=== PATIENT | female | born 1935 | race Caucasian/White ===

== ENCOUNTER 2017-05-15 05:05 | Inpatient (IN) | payer MEDICARE ==
[~2017-05-15] VITALS: Ht 157.5 cm; Wt 64.9 kg
[2017-05-15 05:10] VITALS: BP 145/60
--- NOTE | 2017-05-15 05:20 | NUR ---
PT BIBA ALS. TAKEN TO OF. RT AT BEDSIDE
--- NOTE | 2017-05-15 05:30 | NUR ---
82Y/F PT. BIBA TO ED WITH C/O SOB,SAO2 80% , PUT ON CPAP, BREATHING TX WAS GIVEN ENREOUTE, ON SINUS TACHYCARDIA. AAO X 4, GCS 15, UNABLE TO AMBULATE AT THIS TIME. RESPIRATIONS ON CPAP, TACHYPNIA, BL LUNG CLEAR, O 2 SAT 99%. SKIN WARM AND DRY. NO C/O PAIN AT THIS TIME. VSS, ER MD MADE AWARE OF PT. STATUS.
--- NOTE | 2017-05-15 05:39 | NUR ---
PT MOVED TO BED 1
[2017-05-15] MEDS ORDERED: OSC500 PO (05:56)
[2017-05-15] MEDS ORDERED: AMLO10TA PO (05:56)
[2017-05-15] MEDS ORDERED: GABA100C PO (05:56)
[2017-05-15] MEDS ORDERED: OMEG-36 PO (05:56)
[2017-05-15] MEDS ORDERED: OMEP20TC12 PO (05:56)
[2017-05-15] MEDS ORDERED: ORE25 PO (05:56)
[2017-05-15] MEDS ORDERED: FLO110 IH (05:56)
[2017-05-15] MEDS ORDERED: LIP80 PO (05:56)
[2017-05-15] MEDS ORDERED: CLON0.1T42 PO (05:56)
[2017-05-15] MEDS ORDERED: LOSA100T1 PO (05:56)
[2017-05-15] MEDS ORDERED: MECL-272 PO (05:56)
[2017-05-15] MEDS ORDERED: METO25TE2 PO (05:56)
[2017-05-15] MEDS ORDERED: PRA1 PO (05:56)
[2017-05-15] MEDS ORDERED: ASPI81CT89 PO (05:56)
[2017-05-15 06:43] LABS: HEMATOCRIT 34.3 % (36-48); HEMOGLOBIN 11.1 g/dL (12.0-16.0); MEAN CORPUSCULAR HEMOGLOBIN 29 pg (27-31); MEAN CORPUSCULAR HGB CONC 32 g/dL (33-37); MEAN CORPUSCULAR VOLUME 89 fL (80-94); PLATELET COUNT (AUTO) 236 K/uL (140-450); RED BLOOD CELL COUNT(AUTO) 3.87 MIL/uL (4.20-5.40); WHITE BLOOD COUNT (AUTO) 14.6 K/uL (4.8-10.8)
[2017-05-15 06:44] LABS: ANION GAP 12.7 (8-16); CARBON DIOXIDE 26.1 mmol/L (21-32); CHLORIDE 106 mmol/L (98-107); GLUCOSE 150 mg/dL (74-106); POTASSIUM 3.8 mmol/L (3.5-5.1); SODIUM SERUM 141 mmol/L (136-145); UREA NITROGEN, BLOOD 20 mg/dL (7-18)
[2017-05-15 06:45] LABS: PROTHROMBIN TIME 10.6 secs (10.8-13.4)
[2017-05-15 06:49] LABS: ALBUMIN 3.1 g/dL (3.4-5.0); ASPARTATE AMINOTRANSFERASE 30 U/L (15-37); TOTAL BILIRUBIN 0.3 mg/dL (0.0-1.0)
[2017-05-15 06:54] LABS: EOSINOPHILS % (MANUAL) 1 % (0-4); LYMPHOCYTES % (MANUAL) 6 % (20-46); MONOCYTES % (MANUAL) 7 % (5-12)
[2017-05-15] MEDS ORDERED: methylPREDNISolone SS 125 MG in WATER STERILE 2 ML IV ONE (06:55)
[2017-05-15] MEDS ORDERED: AZITHROMYCIN 1,000 MG in DEXTROSE 5% 500 ML IV ONE (06:55)
[2017-05-15] MEDS ORDERED: NITROGLYCERIN 2% 1 GM PKT TP ONE (07:05)
[2017-05-15] MEDS ORDERED: NACL 0.9% 1,000 ML IV ONE (07:05)
[2017-05-15] MEDS ORDERED: FUROSEMIDE 40 MG/4 ML VIAL IVP SCH (07:05)
[2017-05-15] MEDS ORDERED: cefTRIAXone 1,000 MG VIAL ONE (07:18)
[2017-05-15] MEDS ORDERED: AZITHROMYCIN 500 MG INJ VIAL IV ONE (07:18)
[2017-05-15] MEDS ORDERED: ENOXAPARIN 60 MG/0.6 ML SYR SUBQ ONE (07:25)
[2017-05-15] MEDS ORDERED: ASPIRIN 325 MG TAB PO ONE (07:25)
[2017-05-15] MEDS ORDERED: ONDANSETRON 4 MG/2 ML VIAL IVP PRN (07:30)
[2017-05-15] MEDS ORDERED: HYDROcodone/APAP 5/325 MG 1 TAB TAB PO PRN (07:30)
--- NOTE | 2017-05-15 07:45 | NUR ---
REPORT GIVEN TO LOIDA AL. PT. RESTING IN BED, NO S/SX OF DISTRESS AT THIS TIME.
--- NOTE | 2017-05-15 07:54 | NUR ---
PATIENT RESTING IN BED ON BIPAP, VS STABLE, NO RESPIRATORY DISTRESS AT THIS TIME, NSR ON THE MONITOR.
[2017-05-15 08:08] VITALS: BP 145/57
[2017-05-15 09:54] LABS: FREE T4 (FREE THYROXINE) 1.31 ng/dL (0.76-1.46); MAGNESIUM 1.8 mg/dL (1.8-2.4); PHOSPHORUS 3.6 mg/dL (2.5-4.9); THYROID STIMULATING HORMONE 0.88 uIU/mL (0.34-3.74)
[2017-05-15] MEDS ORDERED: HEPARIN PER PHARMACY MC PRN (10:05)
[2017-05-15] MEDS ORDERED: hePARIN / DEXT 5% PREMIX 250 ML IV SCH (10:05)
--- NOTE | 2017-05-15 10:32 | NUR ---
LEVAQUIN AND CLEOCIN NOT AVAILABLE IN ER [facility], PHARMACY NOTIFIED AND THEY ADVISED LEVAQUIN IS NOT DUE UNTIL TOMORROW PATIENT RECIEVED AZITHROMYACIN TODAY AND THEY WILL MIX AND BRING CLEOCIN AND COLACE PO. I ADVISED PHARMACY THAT I HELD HEPARIN DUE TO PATIENT RECIEVING LOVENOX EARLIER TODAY, PHARMACY SAID WE HAD TO WAIT 12 HOURS PRIOR TO STARTING HEPARIN.
[2017-05-15] MEDS: DOCUSATE SODIUM 100 MG GELCAP PO SCH (10:40)
--- NOTE | 2017-05-15 10:51 | NUR ---
PT TAKEN OFF CPAP AT THIS TIME, PLACED ON 2.5 LPM NC, TOLERATING WELL, NO RESP DISTRESS OR SOB NOTED AT THIS TIME, HR 83 BP 142/50 O2 SAT 99%, CPAP ON STANDBY, NENO MARISCAL AWARE, WILL CONTINUE TO MONITOR.
[2017-05-15] MEDS ORDERED: DEXTROSE 50% 50 ML SYR IVP PRN (12:40)
[2017-05-15] MEDS: CLINDAMYCIN 600 MG in DEXTROSE 5% 50 ML IV SCH ×2 (13:01→22:23)
[2017-05-15] MEDS ORDERED: cloNIDine 0.1 MG TAB PO PRN (13:10)
[2017-05-15] MEDS: NACL 0.9% 1,000 ML IV SCH (13:30)
[2017-05-15] MEDS: ALBUTEROL SULFATE/IPRATROPIU 3 ML SOL IH PRN (13:37)
[2017-05-15 13:38] VITALS: BP 129/53
--- NOTE | 2017-05-15 13:40 | NUR ---
PATIENT ADMITTED TO THE UNIT FROM ER. PATIENT AWAKE , ALERT AND ORIENTED. PATIENT ON 2L O2. O2 SATURATION AT 95%. SOB UPON EXERTION, WHEEZING NOTED. PATIENT TO RECEIVED BREATHING TX. IV LINE TO THE LEFT HAND INTACT. PATIENT PLACED ON TELE MONITORING. BED LOWERED WITH CALL LIGHT WITHIN REACH. WILL CONTINUE TO MONITOR
--- NOTE | 2017-05-15 14:30 | NUR ---
PATIENT ASLEEP IN BED. NO S/S OF DISTRESS NOTED
[2017-05-15] MEDS: METOPROLOL 25 MG TAB PO SCH ×2 (14:51→22:22)
[2017-05-15 16:00] VITALS: BP 125/64
[2017-05-15] MEDS: BLOOD GLUCOSE MONITORING 1 DEV DEV FS SCH ×2 (16:30→21:55)
--- NOTE | 2017-05-15 18:00 | NUR ---
PATIENT SEEN BY DR HIDALGO WITH PATIENT'S SON PRESENT IN THE ROOM
[2017-05-15] MEDS: INSULIN LISPRO SLIDING SCALE 100 UNITS/ML VIAL SUBQ PRN (18:47)
--- NOTE | 2017-05-15 19:30 | NUR ---
PATIENT REPORT GIVEN AT BEDSIDE. PATIENT ENDORSED IN STABLE CONDITION
--- NOTE | 2017-05-15 19:30 | NUR ---
RECEIVED REPORT FROM AM NURSE. PT IS AAOX4 ON 02 2L VIA [place]. NO SIGNS OS ACUTE DISTRESS NOTED. RESPIRATIONS EVEN AND UNLABORED. PLAN OF CARE DISCUSSED PT VERBALIZED UNDERSTANDING. BED IN LOW POSITION, BILATERAL HALF SIDE RAIL UP, CALL LIGHT WITHIN REACH, WILL CONTINUE TO MONITOR.
[2017-05-15 20:00] VITALS: BP 135/55
[2017-05-15] MEDS: ALBUTEROL SULFATE/IPRATROPIU 3 ML SOL IH SCH (20:56)
[2017-05-15] MEDS: hePARIN / DEXT 5% PREMIX 250 ML IV SCH (22:12)
[2017-05-15] MEDS: ATORVASTATIN 80 MG TAB PO SCH (22:22)
[2017-05-15] MEDS: LOSARTAN 50 MG TAB PO SCH (22:23)
[2017-05-15] MEDS: ACETAMINOPHEN 325 MG TAB PO PRN (22:47)
[2017-05-15] MEDS: guaiFENesin/CODEINE 100/10MG 5 ML UDC PO PRN (22:49)
[2017-05-16] VITALS: BP 108/53
[2017-05-16] MEDS: ALBUTEROL SULFATE/IPRATROPIU 3 ML SOL IH PRN (00:43)
--- NOTE | 2017-05-16 01:00 | NUR ---
PT WAS COMPLAINING OF SOB, PT ASSESSED AND CHECKED O2 SAT. O2 SATURATION WAS 94 WITH O2 A2 2L VIA NC. RT WAS CALLED AND WILL COME SEE PT. WILL CONTINUE TO MONITOR.
[2017-05-16 01:37] LABS: APPEARANCE,URINE HAZY (CLEAR); BILIRUBIN,URINE NEGATIVE (NEGATIVE); BLOOD, URINE 3+ (NEGATIVE); COLOR,URINE YELLOW (YELLOW); LEUKOCYTE ESTERASE ,URINE NEGATIVE (NEGATIVE); NITRITE, URINE NEGATIVE (NEGATIVE); PH,URINE 5.5 (5.0-9.0); UGLUCOSE NEGATIVE (NEGATIVE)
[2017-05-16 01:50] LABS: RBC,URINE TOO NUMEROUS TO COUN /HPF (0-5)
--- NOTE | 2017-05-16 03:30 | NUR ---
PT IS SLEEPING, AROUSABLE TO VOICE. NO SIGNS OF ACUTE DISTRESS NOTED, RESPIRATIONS EVEN AND UNLABORED. BED IN LOW POSITION, BILATERAL HALF SIDE RAILS UP, CALL LIGHT WITHIN REACH, WILL CONTINUE TO MONITOR.
[2017-05-16 04:00] VITALS: BP 127/55
[2017-05-16 05:02] LABS: HEMATOCRIT 32.1 % (36-48); HEMOGLOBIN 10.4 g/dL (12.0-16.0); MEAN CORPUSCULAR HEMOGLOBIN 29 pg (27-31); MEAN CORPUSCULAR HGB CONC 32 g/dL (33-37); MEAN CORPUSCULAR VOLUME 88 fL (80-94); PLATELET COUNT (AUTO) 215 K/uL (140-450); RED BLOOD CELL COUNT(AUTO) 3.64 MIL/uL (4.20-5.40); RED CELL DISTRIBUTION WIDTH 13.1 % (11.6-13.7); WHITE BLOOD COUNT (AUTO) 17.5 K/uL (4.8-10.8)
[2017-05-16 05:15] LABS: ANION GAP 12.8 (8-16); CARBON DIOXIDE 25.3 mmol/L (21-32); CHLORIDE 107 mmol/L (98-107); CREATININE 1.5 mg/dL (0.6-1.3); GLUCOSE 184 mg/dL (74-106); POTASSIUM 3.1 mmol/L (3.5-5.1); SODIUM SERUM 142 mmol/L (136-145); UREA NITROGEN, BLOOD 31 mg/dL (7-18)
[2017-05-16 05:19] LABS: MAGNESIUM 2.1 mg/dL (1.8-2.4); PHOSPHORUS 4.5 mg/dL (2.5-4.9)
[2017-05-16] MEDS ORDERED: KCL 20 MEQ/WATER INJ PREMIX 100 ML IV ONE (05:35)
--- NOTE | 2017-05-16 05:35 | NUR ---
DR FOSTER NOTIFIED REGARDING LAB RESULTS, POTASSIUM IS 3.1. ORDERED KCL 20 MEQ/WATER INJ PREMIX 100 ML
[2017-05-16] MEDS: CLINDAMYCIN 600 MG in DEXTROSE 5% 50 ML IV SCH ×3 (05:49→20:50)
[2017-05-16] MEDS: METOPROLOL 25 MG TAB PO SCH ×3 (05:51→20:49)
[2017-05-16] MEDS: PANTOPRAZOLE 40 MG TABEC PO SCH (05:51)
[2017-05-16 06:00] LABS: EOSINOPHILS % (MANUAL) 1 % (0-4); LYMPHOCYTES % (MANUAL) 2 % (20-46); MONOCYTES % (MANUAL) 2 % (5-12)
--- NOTE | 2017-05-16 06:00 | NUR ---
PT STATES SHE IS FEELING SOB, PT O2 SATURATION IS 96 ON O2 AT 2L VIA NC, PT REPOSITION WELL. RT WAS CALLED, AND WILL COME SEE PT. WILL CONTINUE TO MONITOR PT.
[2017-05-16] MEDS: ALBUTEROL SULFATE/IPRATROPIU 3 ML SOL IH SCH ×3 (06:10→19:35)
--- NOTE | 2017-05-16 06:15 | NUR ---
THE ORDERED KCL 20 MEQ/WATER INJ PREMIX [address] FOSTER IS OUT OF STOCK IN THE [facility]NTIRE HOS[facility], PER GRAY MAGNETO SPECIALIST WAS ADVISED POTASSIUM IS NOT AVAILABLE AT THIS TIME. NOTIFIED DR. FOSTER AND STATED HE WILL ORDER POTASSIUM IN LIQUID FORM WHICH IS AVAILABLE. NOTED, WILL CARRY OUT.
[2017-05-16] MEDS: BLOOD GLUCOSE MONITORING 1 DEV DEV FS SCH ×4 (06:43→21:00)
--- NOTE | 2017-05-16 07:30 | NUR ---
ENDORSED PT TO AM NURSE FOR CONTINUITY OF CARE. PT IS IN STABLE CONDITION.
--- NOTE | 2017-05-16 07:35 | NUR ---
RECEIVED REPORT FROM GENERAL DISTILLERY WORKER NURSE, PT IS RESTING IN BED, A/OX4, AMBULATES WITH ASSIST, IV IS ON THE LEFT WRIST AND LEFT HAND, PATENT, INTACT, FLUSHING WELL, NO S/S OF RESPIRATORY DISTRESS OR DISCOMFORT NOTED, DISCUSSED PLAN OF CARE WITH PT, PT VERBALIZED UNDERSTANDING, SAFETY/FALL PRECAUTIONS ARE IN PLACE, CALL LIGHT IS WITHIN REACH, WILL CONTINUE TO MONITOR.
[2017-05-16 08:00] VITALS: BP 134/60
[2017-05-16] MEDS: NACL 0.9% 1,000 ML IV SCH (08:12)
[2017-05-16] MEDS: ASPIRIN 81 MG TAB.CHEW PO SCH (08:36)
[2017-05-16] MEDS: LEVOFLOXACIN 750 MG/D5W PREMIX 150 ML IV SCH (08:36)
[2017-05-16] MEDS: guaiFENesin/CODEINE 100/10MG 5 ML UDC PO PRN (08:36)
[2017-05-16] MEDS: GABAPENTIN 100 MG CAP PO SCH (08:37)
[2017-05-16] MEDS: DOCUSATE SODIUM 100 MG GELCAP PO SCH (08:37)
[2017-05-16] MEDS: CALCIUM CARBONATE 500 MG TAB PO SCH (08:37)
[2017-05-16] MEDS: BACLOFEN 10 MG TAB PO SCH ×3 (08:37→16:48)
[2017-05-16] MEDS: LOSARTAN 50 MG TAB PO SCH ×2 (08:37→20:49)
[2017-05-16] MEDS: amLODIPine 5 MG TAB PO SCH (08:38)
[2017-05-16] MEDS: HYDROCHLOROTHIAZIDE 25 MG TAB PO SCH (08:38)
[2017-05-16] MEDS: LACTOBACILLUS RHAMNOSUS GG 1 EACH CAP PO SCH (08:38)
[2017-05-16] MEDS: REPAGLINIDE 1 MG TAB PO SCH (08:41)
[2017-05-16] MEDS ORDERED: methylPREDNISolone SS 125 MG/2 ML VIAL IVP SCH (09:00)
[2017-05-16] MEDS ORDERED: LEVOFLOXACIN 750 MG/D5W PREMIX 150 ML IV ONE (09:00)
[2017-05-16] MEDS ORDERED: CLINDAMYCIN 600 MG in DEXTROSE 5% 50 ML IV ONE (09:00)
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
--- NOTE | 2017-05-16 10:33 | NUR ---
PATIENT HAS BEEN SCREENED AND CATEGORIZED MODERATE NUTRITION RISK. PATIENT WILL BE SEEN WITHIN 3-5 DAYS OF ADMISSION. 05/17/17-05/19/[address]
[2017-05-16 12:00] VITALS: BP 152/71
[2017-05-16] MEDS ORDERED: POTASSIUM CHLORIDE 20% 40 MEQ/15 ML UDC PO SCH (13:30)
[2017-05-16] MEDS: hePARIN / DEXT 5% PREMIX 250 ML IV SCH (15:48)
--- NOTE | 2017-05-16 15:55 | NUR ---
CALLED [facility] AND WAS TOLD THAT REVIEW JUST GOES TO [facility]. FAXED INITIAL REVIEW TO [phone] PHONE NO [phone] Addendum: 05/16/17 at 1557 by Priscilla Hall TRACKING NUMBER FROM [facility] IS [phone]
[2017-05-16 16:00] VITALS: BP 128/61
[2017-05-16] MEDS: INSULIN LISPRO SLIDING SCALE 100 UNITS/ML VIAL SUBQ PRN ×2 (17:43→20:47)
--- NOTE | 2017-05-16 19:30 | NUR ---
ENDORSED PT TO STREETCAR CONDUCTOR NURSE FOR CONTINUITY OF CARE, PT STABLE AT THIS TIME.
--- NOTE | 2017-05-16 19:33 | NUR ---
RECEIVED PT IN BED, WATCHING TV. AAOX4. ON O2 AT 2L/MIN VIA NC. NO DISTRESS NOTED. IV TO LEFT HAND #20G WITH NS @ 30 ML/HR, INFUSING WELL. IV TO LEFT WRIST #22G HEPARIN DRIP AT 5.6 ML/HR INFUSING WELL. DISCUSSED PLAN OF CARE, PT VERBALIZED UNDERSTANDING. CALL LIGHT WITHIN REACH. WILL CONTINUE TO MONITOR.
[2017-05-16 20:00] VITALS: BP 123/53
[2017-05-16] MEDS: methylPREDNISolone SS 40 MG/ML VIAL IVP SCH (20:49)
[2017-05-16] MEDS: ATORVASTATIN 80 MG TAB PO SCH (20:50)
--- NOTE | 2017-05-16 21:00 | NUR ---
REPORTED BP 123/[address] FOSTER, IT'S OKAY TO GIVE HYPERTENSIVE MEDS.
--- NOTE | 2017-05-16 23:20 | NUR ---
ASSISTED PT TO BEDSIDE COMMODE. NO S/S OF DISTRESS NOTED. ALL NEEDS MET AT THIS TIME. CALL LIGHT WITHIN REACH.
[2017-05-17] VITALS: BP 139/83
--- NOTE | 2017-05-17 00:58 | NUR ---
RECEIVED CRITICAL LAB VALUE PTT 74.7. REPORTED TO DR. FOSTER. WILL ADJUST HEPARIN DRIP PER PROTOCOL.
[2017-05-17] MEDS: hePARIN / DEXT 5% PREMIX 250 ML IV SCH ×2 (01:04→01:15)
--- NOTE | 2017-05-17 03:05 | NUR ---
PT SLEEPING BUT AROUSES EASILY. NO S/S OF DISTRESS NOTED. CALL LIGHT WITHIN REACH.
[2017-05-17 04:00] VITALS: BP_SYST 125; BP_SYST 126; BP_DIAS 58; BP_DIAS 62
[2017-05-17] MEDS: CLINDAMYCIN 600 MG in DEXTROSE 5% 50 ML IV SCH ×2 (05:05→12:26)
[2017-05-17] MEDS: METOPROLOL 25 MG TAB PO SCH ×3 (05:05→21:14)
--- NOTE | 2017-05-17 05:17 | NUR ---
DUE MEDS GIVEN. NO C/O PAIN OR DISCOMFORT. NO SOB NOTED. CALL LIGHT WITHIN REACH.
[2017-05-17] MEDS: PANTOPRAZOLE 40 MG TABEC PO SCH (05:57)
[2017-05-17] MEDS: INSULIN LISPRO SLIDING SCALE 100 UNITS/ML VIAL SUBQ PRN ×2 (06:04→21:35)
[2017-05-17 06:14] LABS: FOLIC ACID 10.8 ng/mL (>3.0)
[2017-05-17 06:15] LABS: T4 (THYROXINE) 8.3 ug/dL (4.5-12.0)
[2017-05-17] MEDS: BLOOD GLUCOSE MONITORING 1 DEV DEV FS SCH ×4 (06:17→21:19)
--- NOTE | 2017-05-17 07:10 | NUR ---
RECEIVED PATIENT REPORT AT BEDSIDE. PATIENT AWAKE, ALERT AND ORIENTED. NO S/S OF DISTRESS. PATIENT RECEIVING 2L O2 VIA NC. NO SOB. PATIENT ON HEPARIN DRIP AT 440UNITS/HR, INFUSING ON HER LEFT WRIST. PATIENT ON TELE MONITORING. BED LOWERED WITH CALL LIGHT WITHIN REACH. WILL CONTINUE TO MONITOR
[2017-05-17] MEDS: ALBUTEROL SULFATE/IPRATROPIU 3 ML SOL IH SCH ×3 (07:11→19:30)
--- NOTE | 2017-05-17 07:25 | NUR ---
ENDORSED PT TO DAY SHIFT NURSE. PT IN STABLE CONDITION
[2017-05-17] MEDS: NACL 0.9% 1,000 ML IV SCH (07:30)
[2017-05-17 07:40] LABS: ANION GAP 10.5 (8-16); CARBON DIOXIDE 26.4 mmol/L (21-32); CHLORIDE 106 mmol/L (98-107); CREATININE 1.1 mg/dL (0.6-1.3); GLUCOSE 133 mg/dL (74-106); POTASSIUM 3.9 mmol/L (3.5-5.1); SODIUM SERUM 139 mmol/L (136-145); UREA NITROGEN, BLOOD 30 mg/dL (7-18)
[2017-05-17 07:48] LABS: MAGNESIUM 2.1 mg/dL (1.8-2.4); PHOSPHORUS 3.4 mg/dL (2.5-4.9)
[2017-05-17 07:53] LABS: BASOPHILS % (AUTO) 0.3 % (0.0-2.0); EOSINOPHILS % (AUTO) 0.2 % (0.0-4.0); HEMATOCRIT 28.9 % (36-48); HEMOGLOBIN 9.4 g/dL (12.0-16.0); LYMPHOCYTES # (AUTO) 0.5 K/uL (2.5-16.5); LYMPHOCYTES % (AUTO) 3.5 % (20.5-51.1); MEAN CORPUSCULAR HEMOGLOBIN 29 pg (27-31); MEAN CORPUSCULAR HGB CONC 33 g/dL (33-37); MEAN CORPUSCULAR VOLUME 88 fL (80-94); MONOCYTES # (AUTO) 0.6 K/uL (0.8-1.0); MONOCYTES % (AUTO) 4.5 % (1.7-9.3); NEUTROPHILS # (AUTO) 13.1 K/uL (1.8-7.7); NEUTROPHILS % (AUTO) 91.5 % (42.2-75.2); PLATELET COUNT (AUTO) 208 K/uL (140-450); RED BLOOD CELL COUNT(AUTO) 3.27 MIL/uL (4.20-5.40); RED CELL DISTRIBUTION WIDTH 13.5 % (11.6-13.7); WHITE BLOOD COUNT (AUTO) 14.2 K/uL (4.8-10.8)
[2017-05-17 08:00] VITALS: BP 119/60
--- NOTE | 2017-05-17 08:30 | NUR ---
ASSISTED PATIENT TO THE BEDSIDE COMMODE. PATIENT VOIDED
[2017-05-17] MEDS ORDERED: BENZOCAINE/MENTHOL 1 LOZ MM PRN (09:00)
[2017-05-17] MEDS ORDERED: SIMETHICONE 80 MG TAB.CHEW PO PRN (09:00)
[2017-05-17] MEDS: LEVOFLOXACIN 750 MG/D5W PREMIX 150 ML IV SCH (09:01)
[2017-05-17] MEDS: LACTOBACILLUS RHAMNOSUS GG 1 EACH CAP PO SCH (09:02)
[2017-05-17] MEDS: HYDROCHLOROTHIAZIDE 25 MG TAB PO SCH ×2 (09:02→12:32)
[2017-05-17] MEDS: CALCIUM CARBONATE 500 MG TAB PO SCH (09:02)
[2017-05-17] MEDS: BACLOFEN 10 MG TAB PO SCH ×3 (09:03→16:39)
[2017-05-17] MEDS: methylPREDNISolone SS 40 MG/ML VIAL IVP SCH (09:04)
[2017-05-17] MEDS: DOCUSATE SODIUM 100 MG GELCAP PO SCH (09:04)
[2017-05-17] MEDS: GABAPENTIN 100 MG CAP PO SCH (09:04)
[2017-05-17] MEDS: ASPIRIN 81 MG TAB.CHEW PO SCH (09:04)
[2017-05-17] MEDS: LOSARTAN 50 MG TAB PO SCH ×2 (09:05→21:14)
[2017-05-17] MEDS: amLODIPine 5 MG TAB PO SCH (09:06)
[2017-05-17] MEDS: REPAGLINIDE 1 MG TAB PO SCH (09:06)
[2017-05-17 12:00] VITALS: BP 147/57
[2017-05-17] MEDS ORDERED: FUROSEMIDE 20 MG/2 ML VIAL IVP SCH (12:52)
[2017-05-17 16:00] VITALS: BP 139/60
--- NOTE | 2017-05-17 16:24 | NUR ---
CM NOTE CONCURRENT REVIEW FAXED TO [facility] / FAX# [phone], C: [phone]
--- NOTE | 2017-05-17 16:50 | NUR ---
PATIENT ENDORSED TO LOIDA MCCAIN
--- NOTE | 2017-05-17 19:30 | NUR ---
REPORT GIVEN TO LOOM OPERATOR APPRENTICE RN. PT IN STABLE CONDITION.
--- NOTE | 2017-05-17 19:31 | NUR ---
RECEIVED PATIENT REPORT AT BEDSIDE. PATIENT AWAKE, ALERT AND ORIENTED. NO S/S OF DISTRESS. PATIENT RECEIVING 2L O2 VIA NC. NO SOB. IV TO L HAND 20G PATENT AND INTACT. SKIN INTACT. RESPIRATIONS EVEN AND UNLABORED. INITIAL ASSESSMENT COMPLETED. PLAN OF CARE DISCUSSED WITH PT AT THE BEDSIDE. ALL SAFETY PRECAUTIONS MET, CALL LIGHT WITHIN REACH, WILL CONTINUE TO MONITOR.
[2017-05-17 20:00] VITALS: BP 142/56
[2017-05-17] MEDS: ATORVASTATIN 80 MG TAB PO SCH (21:14)
[2017-05-18] VITALS: BP 129/49
[2017-05-18 04:00] VITALS: BP 136/77
[2017-05-18] MEDS: PANTOPRAZOLE 40 MG TABEC PO SCH (05:40)
[2017-05-18] MEDS: METOPROLOL 25 MG TAB PO SCH ×2 (05:40→12:39)
[2017-05-18] MEDS: BLOOD GLUCOSE MONITORING 1 DEV DEV FS SCH ×3 (07:25→16:46)
--- NOTE | 2017-05-18 07:30 | NUR ---
RECEIVED PT IN BED. AWAKE. ALERT ORIENTEDX4. NO SOB NOTED. ON 02 AT 2LPM NC. DENIES ANY PAIN OR DISCOMFORT AT THIS TIME. PT AMBULATORY WITH BEDSIDE COMMODE. SAFETY PRECAUTION IN PLACE. CALL LIGHT WITHIN REACH.
--- NOTE | 2017-05-18 07:30 | NUR ---
GAVE REPORT TO DAY RN FOR CONTINUITY OF CARE, PT IN STABLE CONDITION. NO S/S OF DISTRESS NOTED. IV PATENT AND INTACT
[2017-05-18] MEDS: ALBUTEROL SULFATE/IPRATROPIU 3 ML SOL IH SCH ×2 (07:42→14:00)
[2017-05-18 07:48] LABS: BASOPHILS # (AUTO) 0.1 K/uL (0.00-0.22); BASOPHILS % (AUTO) 0.8 % (0.0-2.0); EOSINOPHILS % (AUTO) 0.1 % (0.0-4.0); HEMATOCRIT 33.5 % (36-48); HEMOGLOBIN 10.8 g/dL (12.0-16.0); LYMPHOCYTES # (AUTO) 0.7 K/uL (2.5-16.5); LYMPHOCYTES % (AUTO) 7.9 % (20.5-51.1); MEAN CORPUSCULAR HEMOGLOBIN 29 pg (27-31); MEAN CORPUSCULAR HGB CONC 32 g/dL (33-37); MEAN CORPUSCULAR VOLUME 89 fL (80-94); MONOCYTES # (AUTO) 0.9 K/uL (0.8-1.0); MONOCYTES % (AUTO) 9.4 % (1.7-9.3); NEUTROPHILS # (AUTO) 7.6 K/uL (1.8-7.7); NEUTROPHILS % (AUTO) 81.8 % (42.2-75.2); PLATELET COUNT (AUTO) 257 K/uL (140-450); RED BLOOD CELL COUNT(AUTO) 3.78 MIL/uL (4.20-5.40); RED CELL DISTRIBUTION WIDTH 13.2 % (11.6-13.7)
[2017-05-18 08:00] VITALS: BP 164/78
[2017-05-18 08:17] LABS: CHLORIDE 102 mmol/L (98-107); CREATININE 1.1 mg/dL (0.6-1.3); GLUCOSE 86 mg/dL (74-106); SODIUM SERUM 139 mmol/L (136-145); UREA NITROGEN, BLOOD 27 mg/dL (7-18)
[2017-05-18 08:59] LABS: WHITE BLOOD COUNT (AUTO) 9.3 K/uL (4.8-10.8)
[2017-05-18] MEDS: DOCUSATE SODIUM 100 MG GELCAP PO SCH (08:59)
[2017-05-18] MEDS: amLODIPine 5 MG TAB PO SCH (08:59)
[2017-05-18] MEDS: LEVOFLOXACIN 750 MG/D5W PREMIX 150 ML IV SCH (08:59)
[2017-05-18] MEDS: CALCIUM CARBONATE 500 MG TAB PO SCH (09:00)
[2017-05-18] MEDS: LACTOBACILLUS RHAMNOSUS GG 1 EACH CAP PO SCH (09:00)
[2017-05-18] MEDS: LOSARTAN 50 MG TAB PO SCH (09:00)
[2017-05-18] MEDS: GABAPENTIN 100 MG CAP PO SCH (09:00)
[2017-05-18] MEDS: ASPIRIN 81 MG TAB.CHEW PO SCH (09:01)
[2017-05-18] MEDS: HYDROCHLOROTHIAZIDE 25 MG TAB PO SCH (09:01)
[2017-05-18] MEDS: BACLOFEN 10 MG TAB PO SCH ×3 (09:01→16:05)
[2017-05-18] MEDS: REPAGLINIDE 1 MG TAB PO SCH (09:02)
--- NOTE | 2017-05-18 11:20 | NUR ---
RECEIVE A CALL FROM LAB REGARDING THE NEED TO RECOLLECT SPUTUM SPECIMEN ORDER DUE TO ITS CONTAMINATED. DR. HIDALGO MADE AWARE, BUT ACCORDING TO DOCTOR PT DOESN'T NEED IT ANYMORE AND PT WILL BE DISCHARGED TODAY.
[2017-05-18 11:41] VITALS: BP 144/63
[2017-05-18] MEDS ORDERED: LEVO750T2 PO (14:13)
[2017-05-18] MEDS ORDERED: LACT10CA PO (14:13)
--- NOTE | 2017-05-18 14:28 | NUR ---
CM NOTE CONCURRENT REVIEW FAXED TO [facility] / FAX# [phone], C: [phone]
[2017-05-18 15:44] VITALS: BP 124/58
[2017-05-18] MEDS: ACETAMINOPHEN 325 MG TAB PO PRN (16:05)
--- NOTE | 2017-05-18 17:28 | NUR ---
CALLED SON SAGRARIO, MADE AWARE OF DISCHARGE ORDER. HE SAID THAT HE WILL COME TO [facility] PT IN 30 MINS.
--- NOTE | 2017-05-18 17:59 | NUR ---
DISCHARGE INSTRUCTIONS AND HEALTH TEACHINGS EXPLAINED AND GIVEN TO PT. PT VERBALIZED UNDERSTANDING AND SIGNED DISCHARGE PAPERS. REMINDED TO FOLLOW UP WITH DOCTOR SCHEDULED ON DISCHARGE PAPERS. IV CANNULA REMOVED AND INTACT. NO SOB NOTED. DENIES ANY PAIN OR DISCOMFORT AT THIS TIME.
--- NOTE | 2017-05-18 18:11 | NUR ---
ROSEY ZABALA CAME TO ROOM MAID PT. DR. HIDALGO CAME TO SEE PT AND SON AND EXPLAINED DISCHARGE INSTRUCTIONS TO PT AND SCHEDULED FOLLOW UP APPOINTMENT. ROSEY ZABALA MADE AWARE OF DISCHARGE TEACHING AND HEALTH INSTRUCTIONS. SON VERBALIZED UNDERSTANDING. PT EATING DINNER AT THIS TIME.TELE MONITOR REMOVED.
--- NOTE | 2017-05-18 18:45 | NUR ---
PT NAME [facility] REMOVED. PT WHEELED OUT GOING TO THE HOSPITAL PARKING LOT TO THEIR PRIVATE OWNED VEHICLE WITH SON SAGRARIO. NO SOB NOTED. DENIES ANY PAIN OR DISCOMFORT AT THIS TIME. PT DISCHARGED ON STABLE CONDITION.
== END 2017-05-18 18:45 | disposition home or self-care (01) | DRG 720 ==
LOC: MED 05:05 → MTU 07:47
PROVIDERS: ADMIT Student in an Organized Health Care Education/Training Program; ATTEND Student in an Organized Health Care Education/Training Program
PROC: 5A09357 Assistance with Respiratory Ventilation, Less than 24 Consecutive Hours, Continuous Positive Airway Pressure (ICD-10-PCS; principal; 2017-05-15)
DX: A41.9 Sepsis, unspecified organism (principal); I21.4 Non-ST elevation (NSTEMI) myocardial infarction; J96.01 Acute respiratory failure with hypoxia; J69.0 Pneumonitis due to inhalation of food and vomit; I50.43 Acute on chronic combined systolic (congestive) and diastolic (congestive) heart failure; D68.59 Other primary thrombophilia; E11.51 Type 2 diabetes mellitus with diabetic peripheral angiopathy without gangrene; I11.0 Hypertensive heart disease with heart failure; E11.65 Type 2 diabetes mellitus with hyperglycemia; E44.0 Moderate protein-calorie malnutrition; E78.5 Hyperlipidemia, unspecified; I35.0 Nonrheumatic aortic (valve) stenosis; D63.8 Anemia in other chronic diseases classified elsewhere; M62.50 Muscle wasting and atrophy, not elsewhere classified, unspecified site; J44.1 Chronic obstructive pulmonary disease with (acute) exacerbation; E87.6 Hypokalemia; E66.9 Obesity, unspecified; I25.10 Atherosclerotic heart disease of native coronary artery without angina pectoris; Z82.3 Family history of stroke; Z95.1 Presence of aortocoronary bypass graft; Z68.26 Body mass index [BMI] 26.0-26.9, adult; Z79.899 Other long term (current) drug therapy; Z98.891 History of uterine scar from previous surgery
CPT/HCPCS: 36415; 36600; 71045; 74018; 80048; 80053; 81001; 82550; 82553; 82607; 82728; 82746; 82803; 82948; 83036; 83540; 83605; 83735; 83874; 83880; 84100; 84436; 84439; 84443; 84484; 85025; 85045; 85610; 85730; 87040; 87070; 87081; 87086; 87205; 93005; 93925; 93970; 94640; J0456; J0696; J1644; J1650; J1815; J1940; J1956; J2405; J2920; J2930; J3490; J7030; J7060; J7620; Q0092